=== PATIENT | female | born 1940 | race Caucasian/White ===

== ENCOUNTER → 2017-02-15 | Outpatient (CLI) | payer OTHER, MEDICARE ==
[~2017-02-15] MED LIST: ALBU1AER9 INH; CLTP PO; DILT120C99 PO; DOUNEB INH; DOXY-300 PO; DOXY100C76 PO; FERR325T5 PO; MULT-506 PO; POTA99TA PO; PRAV40TA2 PO
--- NOTE | 2017-02-15 19:57 | PULMONARY FUNCTION TEST ---
CLINICAL DATA: A 76-year-old female with a height of 65 inches and a weight of [address] Eder Knapp for evaluation of COPD. Spirometry pre- and post-bronchodilator, lung volumes and DLCO were performed. FINDINGS: Pre-bronchodilator spirometry demonstrates severe obstructive airways disease. FVC was 77% predicted. FEV1 was 44% of predicted at 0.89 liters. FEF 25-75 was 14% of predicted. There was no significant improvement after inhaled bronchodilator. Lung volumes demonstrated air trapping. Residual volume was 170% of predicted. DLCO was severely reduced at 42% of predicted. IMPRESSION: Severe obstructive airways disease with air trapping,and a severely reduced DLCO consistent with severe chronic obstructive pulmonary disease. There was no significant improvement after inhaled bronchodilator. MTDD
== END | disposition home or self-care (01) ==
LOC: C.RC 09:51
PROVIDERS: ATTEND Internal Medicine Cardiovascular Disease
DX: J44.9 Chronic obstructive pulmonary disease, unspecified (principal)

== ENCOUNTER 2017-03-21 23:47 | Emergency (ER) | payer OTHER, MEDICARE ==
[~2017-03-21] VITALS: Ht 165.1 cm; Wt 63.0 kg
[2017-03-21 23:51] VITALS: Ht 165.1 cm; Wt 63.0 kg
[2017-03-21] MEDS ORDERED: OXYMETAZOLINE HCL 0.05% NA SPR 15 ML BTL ONE (23:58)
--- NOTE | 2017-03-22 00:09 | EMERGENCY ROOM VISIT NOTE ---
History Report prepared by Tariq: Ora Blum Under the Supervision of: Dr. Ashleigh Calle M.D. First contact with patient: 23:54 Chief Complaint: NOSE BLEED (MAJOR) Stated Complaint: NOSE BLEED FOR AN HOUR History of Present Illness The patient is a 76 year old female who presents to the Emergency Room with complaints of a constant nose bleed occurring 1 hour prior to arrival. The patient reports that the blood has also been running down the back of her throat. She denies having other symptoms. The patient reports that she takes Tylenol, but denies being on blood thinners. She states that she has a heart murmur and COPD, but denies a history of strokes and heart attacks. The patient states that she was anemic for 2 years. The patient also denies having trouble with her platelets and denies having nasal packing before. Source of History: patient Onset: 1 hour prior to arrival Position: nose Quality: other (nosebleed) Timing: constant Associated Symptoms: No fevers Review of Systems See HPI for pertinent positives & negatives. A total of 10 systems reviewed and were otherwise negative. Past Medical & Surgical Medical Problems: (1) Anemia (2) Benign hypertension (3) Chronic obstructive lung disease (4) Heart murmur (5) Infected ulcer of skin (6) Sinusitis Family History No pertinent family history stated. Social History Smoking Status: Never Smoker Marital Status: Housing Status: lives alone Occupation Status: retired Current/Historical Medications Scheduled Albuterol Sulfate (Proair Hfa), 2 PUFFS INH PRN/UD Calcium Carbonate-Vitamin D W/ (Caltrate 600 Plus), 2 TAB PO DAILY Diltiazem Hcl Ext Rel (Tiazac), 240 MG PO DAILY Doxycycline (Monohydrate) (Doxycycline), 100 MG PO BID/PRN Ferrous Sulfate (Ferrous Sulfate), 325 MG PO DAILY Fluconazole (Diflucan), 100 MG PO DAILY/PRN Multivitamin (Multivitamin), 1 TABLET PO DAILY Potassium (Potassium), 99 MG PO DAILY Pravastatin (Pravachol ), 20 MG PO HS Scheduled PRN Furosemide (Lasix), 20 MG PO DAILY PRN for EDEMA/SOB Ipratropium-Albuterol (Duoneb), 3 ML INH QID PRN for SOB/Wheezing Allergies Coded Allergies: Levofloxacin (Verified Allergy, Unknown, ITCHY--ALLERGIC TO TABS BUT IV FORM IS OK, 08/26/13) Physical Exam Vital Signs Date Time Temp Pulse Resp B/P (MAP) Pulse Ox O2 Delivery O2 Flow Rate FiO2 03/22/17 03:09 87 16 155/69 100 03/22/17 02:49 87 16 155/69 100 Nasal Cannula 3.0 03/22/17 01:14 36.6 03/22/17 00:47 92 15 158/79 99 Nasal Cannula 3.0 03/21/17 23:51 112 20 174/82 93 Room Air Physical Exam Vital signs reviewed. General: Well-appearing female, in no significant distress. HEENT: Active bleeding from bilateral naris. Clot noted in posterior oropharynx with dry blood on mucosa. Minimal bleeding from left lacrimal duct with some conjunctival injection. No scleral icterus, PERRLA, neck supple. Atraumatic. Cardiovascular: Systolic ejection murmur, no extra sounds. Pulmonary: Clear to auscultation bilaterally, normal work of breathing. Abdomen: Soft, nontender, nondistended, positive bowel sounds. Musculoskeletal: Atraumatic, no peripheral edema. Neurologic: Patient awake alert and oriented x 3 Skin: Warm, dry, no rash Medical Decision & Procedures Laboratory Results 03/22/17 00:13 Red Blood Count 3.97, Mean Corpuscular Volume 95.2, Mean Corpuscular Hemoglobin 30.2, Mean Corpuscular Hemoglobin Concent 31.7, Mean Platelet Volume 10.5, Neutrophils (%) (Auto) 78.4, Lymphocytes (%) (Auto) 13.5, Monocytes (%) (Auto) 5.8, Eosinophils (%) (Auto) 1.8, Basophils (%) (Auto) 0.4, Neutrophils # (Auto) 11.03, Lymphocytes # (Auto) 1.90, Monocytes # (Auto) 0.81, Eosinophils # (Auto) 0.26, Basophils # (Auto) 0.05 03/22/17 00:13 Test 03/22/17 00:13 White Blood Count 14.07 K/uL (4.8-10.8) Red Blood Count 3.97 M/uL (4.2-5.4) Hemoglobin 12.0 g/dL (12.0-16.0) Hematocrit 37.8 % (37-47) Mean Corpuscular Volume 95.2 fL (80-100) Mean Corpuscular Hemoglobin 30.2 pg (25-34) Mean Corpuscular Hemoglobin Concent 31.7 g/dl (32-36) Platelet Count 282 K/uL (130-400) Mean Platelet Volume 10.5 fL (7.4-10.4) Neutrophils (%) (Auto) 78.4 % Lymphocytes (%) (Auto) 13.5 % Monocytes (%) (Auto) 5.8 % Eosinophils (%) (Auto) 1.8 % Basophils (%) (Auto) 0.4 % Neutrophils # (Auto) 11.03 K/uL (1.4-6.5) Lymphocytes # (Auto) 1.90 K/uL (1.2-3.4) Monocytes # (Auto) 0.81 K/uL (0.11-0.59) Eosinophils # (Auto) 0.26 K/uL (0-0.5) Basophils # (Auto) 0.05 K/uL (0-0.2) RDW Standard Deviation 49.5 fL (36.4-46.3) RDW Coefficient of Variation 14.2 % (11.5-14.5) Immature Granulocyte % (Auto) 0.1 % Immature Granulocyte # (Auto) 0.02 K/uL (0.00-0.02) Prothrombin Time 10.0 SECONDS (9.0-12.0) Prothromb Time International Ratio 0.9 (0.9-1.1) Activated Partial Thromboplast Time 27.2 SECONDS (21.0-31.0) Partial Thromboplastin Ratio 1.0 Anion Gap 7.0 mmol/L (3-11) Est Creatinine Clear Calc Drug Dose 54.4 ml/min Estimated GFR () 85.0 Estimated GFR (Non- 73.3 BUN/Creatinine Ratio 19.2 (10-20) Calcium Level 10.2 mg/dl (8.5-10.1) Total Bilirubin 0.3 mg/dl (0.2-1) Direct Bilirubin < 0.1 mg/dl (0-0.2) Aspartate Amino Transf (AST/SGOT) 13 U/L (15-37) Alanine Aminotransferase (ALT/SGPT) 18 U/L (12-78) Alkaline Phosphatase 85 U/L (45-117) Total Protein 7.7 gm/dl (6.4-8.2) Albumin 3.9 gm/dl (3.4-5.0) Laboratory results per my review. Medications Administered Medications (Trade) Dose Ordered Sig/Ya Route Start Time Stop Time Status Last Admin Dose Admin Oxymetazoline HCl (Afrin 0.05% Nasal Jackson) 1 sprays NOW ONCE NA 03/22/17 02:00 03/22/17 02:01 DC 03/22/17 03:08 1 SPRAYS ED Course 2357: Past medical records reviewed. The patient was evaluated in room B2. A complete history and physical examination was performed. 2358: Ordered Oxymetazoline HCl 75 sprays NA. 0115: I checked on the patient. 0155: I checked on the patient and she has improvement of her symptoms. 0200: Ordered Oxymetazoline HCl 1 sprays NA. 0253: Upon reevaluation, the patient appeared to have improvement of her symptoms. I discussed findings with her. She verbalized agreement of the treatment plan. She was discharged home. Medical Decision Differential diagnosis: Etiologies such as anterior epistaxis, coagulopathy, traumatic injury, fracture , septal hematoma, posterior epistaxis as well as other pathologies were entertained. This pt was evaluated and appeared to be in no distress. IV access was obtained and lab work was drawn. Pt was placed on the director of cardiac cath lab. Lab work was drawn. Pt was given afrin nasal spray with minimal improvement. Pt was treated with Hemaderm powder to each nare. Clamp was applied. Pt was observed and had periodic minimal oozing. There was a large amount of clot visualized in the nares, I was unable to suction without significant disruption. Pt had no further bleeding and was observed in the ED for several hours. Lab work reveals a stable H/H, plt count and INR. Family will stay with the patient tonight. She has ENT follow up. Pt was d/c with a nasal clamp and afrin if needed. She will return to the ED for worsening of symptoms or any medical concerns. Medication Reconcilliation Current Medication List: was personally reviewed by me Blood Pressure Screening Patient's blood pressure: Elevated blood pressure Blood pressure disposition: Referred to PCP Impression Primary Impression: Epistaxis Scribe Attestation The scribe's documentation has been prepared under my direction and personally reviewed by me in its entirety. I confirm that the note above accurately reflects all work, treatment, procedures, and medical decision making performed by me. Departure Information Dispostion Home / Self-Care Referrals Vaishnavi Bah D.O. (PCP) Forms HOME CARE DOCUMENTATION FORM, IMPORTANT VISIT INFORMATION, WORK / SCHOOL INSTRUCTIONS Patient Instructions My [facility] Additional Instructions Diagnosis: Epistaxis Avoid scratching, rubbing, picking, or blowing your nose. The leather drier your nasal passages the more likely they are to bleed. The following two products are available [id number] at most drug stores/pharmacies: [place] Jackson nasal spray or similar generic saline spray to keep the nose moist 3 to 4 times a day or Apply [place]idan gel 2-3 times daily to the nostrils to keep them moist. If bleeding recurs apply direct pressure, use Afrin nasal spray 3 sprays in each nostril and apply the clamp. Leave uninterrupted 20 minutes. On and off pressure is much less effective because it will disturb the clots that are forming. If the bleeding is still a problem after 20 minutes or is so heavy despite the pressure return to the emergency department. Follow-up with your primary care physician or ENT physician in 2 to 3 days for a recheck of your current condition if problems persist.
[2017-03-22] MEDS ORDERED: PRAV20TA PO (00:31)
[2017-03-22] MEDS ORDERED: DILT-115 PO (00:32)
[2017-03-22] MEDS ORDERED: FURO-85 PO (00:34)
[2017-03-22] MEDS ORDERED: FLUC100T4 PO (00:40)
[2017-03-22] MEDS ORDERED: CALCTAB7 PO (00:42)
[2017-03-22 00:45] LABS: BASO % 0.4 %; BASO ABS # 0.05 K/uL (0-0.2); COMPLETE YES; EOS % 1.8 %; HEMATOCRIT 37.8 % (37-47); IG% 0.1 %; LYMPH % 13.5 %; MEAN CELL VOLUME 95.2 fL (80-100); MEAN CORPUSCULAR HEMOGLOBIN 30.2 pg (25-34); MEAN CORPUSCULAR HGB CONC 31.7 g/dl (32-36); MEAN PLATELET VOLUME 10.5 fL (7.4-10.4); MONO % 5.8 %; NEUT % 78.4 %; PLATELET COUNT 282 K/uL (130-400); RED BLOOD COUNT 3.97 M/uL (4.2-5.4); WHITE BLOOD COUNT 14.07 K/uL (4.8-10.8)
[2017-03-22] MEDS ORDERED: IPRASOL4 INH (00:45)
[2017-03-22 00:46] LABS: ALT/SGPT 18 U/L (12-78); BLOOD UREA NITROGEN 15 mg/dl (7-18); BUN/CREATININE RATIO 19.2 (10-20); CALCIUM 10.2 mg/dl (8.5-10.1); CARBON DIOXIDE 30 mmol/L (21-32); CHLORIDE 104 mmol/L (98-107); CREATININE 0.78 mg/dl (0.60-1.20); GLUCOSE 184 mg/dl (70-99); POTASSIUM 3.9 mmol/L (3.5-5.1); SODIUM 142 mmol/L (136-145)
[2017-03-22 00:48] LABS: ALKALINE PHOSPHATASE 85 U/L (45-117); AST/SGOT 13 U/L (15-37)
[2017-03-22 00:57] LABS: INR 0.9 (0.9-1.1)
[2017-03-22 01:14] VITALS: TEMP 36.6
[2017-03-22] MEDS ORDERED: OXYMETAZOLINE HCL 0.05% NA SPR 15 ML BTL ONE (02:00)
[2017-03-22 03:09] VITALS: BP 155/69; PULSE 87; O2SAT 100
== END 2017-03-22 03:10 | disposition home or self-care (01) ==
LOC: C.EDB 23:48
DX: R04.0 Epistaxis (principal); R01.1 Cardiac murmur, unspecified; J44.9 Chronic obstructive pulmonary disease, unspecified; I10 Essential (primary) hypertension